=== PATIENT | male | born 1960 | race Caucasian/White ===

== ENCOUNTER 2016-10-31 07:30 | Inpatient (IN) | payer BC, OTHER ==
[~2016-10-31] VITALS: Ht 182.9 cm; Wt 91.6 kg
[2017-01-09] VITALS (14 sets, daily range): BP systolic 106–125; BP diastolic 62–85
[2017-01-09] MEDS ORDERED: Thrombin 5000 units TOPIC ONE (06:24)
[2017-01-09] MEDS ORDERED: Surgicel 4in x 8in TOPIC ONE (06:24)
[2017-01-09] MEDS ORDERED: Vancomycin 1gm inj IVPB ONE ×2 (06:25→10:54)
[2017-01-09] MEDS ORDERED: Bacitracin 50000 Units Vial ONE (06:25)
[2017-01-09] MEDS ORDERED: Bupivacaine w/Epi 0.5% 30ml Vial INJ ONE (06:25)
[2017-01-09] MEDS ORDERED: CARISOPRODOL350 MG ORAL (06:52)
[2017-01-09] MEDS ORDERED: SCOPOLAMINE1 EACH TD (06:52)
[2017-01-09] MEDS ORDERED: ceFAZolin 2gm/50ml Premix 50 ML IVPB ONE (07:00)
[2017-01-09] MEDS ORDERED: ceFAZolin sod 2 GM in D5W 110 ML IVP ONE (07:00)
--- NOTE | 2017-01-09 07:18 | Pre-Procedure Note/Attestation ---
Pre-Procedure Note/Attestation Complete Prior to Procedure Planned Procedure: not applicable Procedure Narrative: Cervical artificial disc replacement of C56 and anterior cervical discectomy and fusion of 67 Indications for Procedure Pre-Operative Diagnosis: 56 and 67 herniations Attestation I attest that I discussed the nature of the procedure; its benefits; risks and complications; and alternatives (and the risks and benefits of such alternatives ), prior to the procedure, with the patient (or the patient's legal telephone service representative). I attest that, if there was a reasonable possibility of needing a blood transfusion, the patient (or the patient's legal telephone service representative) was given the [facility] standardized written summary, pursuant to the [place] Blood Safety Act ([place] Health and Safety Code # 1645, as amended). I attest that I re-evaluated the patient just prior to the surgery and that there has been no change in the patient's H&P, except as documented below: GALO CASTRO Jan 09, 2017 07:18
--- NOTE | 2017-01-09 07:20 | Brief Operative Note ---
Immediate Post Operative Note Operative Note Chief Complaint: Neck pain and radiculopathy Pre-op Diagnosis: 56 and 67 herniations Procedure: Cervical artificial disc replacement of C56 and anterior cervical discectomy and fusion of 67 Surgeon: Karis Certified Low Vision Therapist: Keevn Anesthesia: general Specimen: none Complications: none Drains: none Implant(s) used?: Yes - Prodisc C size 5, nuvasive interlock C size 6 GALO CASTRO Jan 09, 2017 07:20
[2017-01-09] MEDS ORDERED: Phenylephrine 10mg/ml Vial ONE (07:30)
[2017-01-09] MEDS ORDERED: Sterile Water Irrig 1000ml IRRIG ONE (07:30)
[2017-01-09] MEDS ORDERED: Lidocaine 1% MPF 10mg/ml 5ml ONE (07:30)
[2017-01-09] MEDS ORDERED: Norco 7.5mg/325mg tab ORAL PRN (07:30)
[2017-01-09] MEDS ORDERED: Neostigmine 1mg/ml 10ml Inj ONE (07:30)
[2017-01-09] MEDS ORDERED: HYDROmorphone 1mg/ml Carpuject IVP PRN (07:30)
[2017-01-09] MEDS ORDERED: Morphine Sulfate 10mg/ml Inj ONE (07:30)
[2017-01-09] MEDS ORDERED: Chloraseptic Spray 20mL Bottle ORAL PRN (07:30)
[2017-01-09] MEDS ORDERED: LR 1000ml ONE (07:30)
[2017-01-09] MEDS ORDERED: fentaNYL 100 mcg/2 mL IV ONE (07:30)
[2017-01-09] MEDS ORDERED: Succinylcholine 20mg/ml 10ml vial ONE (07:30)
[2017-01-09] MEDS ORDERED: HYDROmorphone 1mg/ml Carpuject SUBQ PRN (07:30)
[2017-01-09] MEDS ORDERED: Propofol 1,000mg/ 100ml btl IV ONE (07:30)
[2017-01-09] MEDS ORDERED: Sodium Chloride 10ml vial INJ ONE ×2 (07:30)
[2017-01-09] MEDS ORDERED: Metoclopramide 10mg/2ml Inj IVP PRN (07:30)
[2017-01-09] MEDS ORDERED: Milk of Magnesia 30ml Ud ORAL PRN (07:30)
[2017-01-09] MEDS ORDERED: Naloxone 0.4mg/ml Inj IVP PRN (07:30)
[2017-01-09] MEDS ORDERED: Ketorolac 30mg Inj ONE (07:30)
[2017-01-09] MEDS ORDERED: Midazolam 2mg/2ml Inj ONE (07:30)
[2017-01-09] MEDS ORDERED: NS Irrig 1000ml ONE (07:30)
[2017-01-09] MEDS ORDERED: Norco 5mg/325mg tab ORAL PRN (07:30)
[2017-01-09] MEDS ORDERED: Glycopyrrolate 0.2mg/ml 1ml Vial ONE (07:30)
[2017-01-09] MEDS ORDERED: Zemuron 50mg/5ml Inj IV ONE (07:30)
[2017-01-09] MEDS ORDERED: LR 1000ml 1,000 ML IVLG SCH (08:52)
--- NOTE | 2017-01-09 08:52 | Anethesia Preoperative Eval ---
Anesthesia Pre-op PMH/ROS General Date of Evaluation: Jan 09, 2017 Time of Evaluation: 07:15 Anesthesiologist: Wlater ASA Score: ASA 2 Mallampati Score Class I : Soft palate, uvula, fauces, pillars visible Class II: Soft palate, uvula, fauces visible Class III: Soft palate, base of uvula visible Class IV: Only hard plate visible Mallampati Classification: Class II Surgeon: Karis Diagnosis: Cervical eadiculopathy Surgical Procedure: ACDF Anesthesia History: none Social History: smoking - h/o Family History: no anesthesia problems Allergies: Coded Allergies: PROPOXYPHENE (Verified Allergy, Unknown, 01/09/17) cannot remember reaction Past Medical History Cardiovascular: Reports: HTN - mild, Denies: CAD, VA, valve dz, arrhythmia, other Pulmonary: Denies: asthma, COPD, KENNEDY, other Gastrointestinal/Genitourinary: Reports: GERD - mild, Denies: CRI, ESRD, other Neurologic/Psychiatric: Reports: other - chronic pain, Denies: dementia, CVA, depression/anxiety, TIA Endocrine: Denies: DM, hypothyroidism, steroids, other HEENT: Denies: cataract (L), cataract (R), glaucoma, MECHOOPDA (L), MECHOOPDA (R), other Hematology/Immune: Denies: anemia, DVT, bleeding disorder, other Musculoskeletal/Integumentary: Denies: OA, RA, DJD, DDD, edema, other PMH Narrative: as above PSxH Narrative: Partial colon resection Anesthesia Pre-op Phys. Exam Physician Exam Last Vital Signs Date Time Temp Pulse Resp B/P (MAP) Pulse Ox O2 Delivery O2 Flow Rate FiO2 01/09/17 06:48 97.5 48 20 107/62 100 Room Air Constitutional: NAD Neurologic: CN 2-12 intact Cardiovascular: RRR, no M/R/G Respiratory: CTA Gastrointestinal: S/NT/ND Airway Exam Mallampati Score: Class II MO: full Neck: stiff ROM: limited Teeth: intact Dentures: no upper, no lower Anesthesia Pre-op A/P Labs see chart low BS level on preop bloodwork 54, recheck accucheck preop - 83 good to proceed Studies Pre-op Studies: EKG - NSR Risk Assessment & Plan Assessment: ASA 2 Plan: GA with ETT Neuromonitoring Status Change Before Surgery: No Pre-Antibiotics Drug: Ancef 2gr. Given Within 1 Hr of Incision: Yes Time Given: 08:12 PATSY CORDON M.D. Jan 09, 2017 08:52
[2017-01-09] MEDS ORDERED: DiphenhydrAMINE 50mg/ml Inj IVP PRN (09:00)
[2017-01-09] MEDS ORDERED: Meperidine 50mg/ml Inj(FOR RIGORS ONLY) IV PRN (09:00)
[2017-01-09] MEDS ORDERED: Midazolam 2mg/2ml Inj IVP PRN (09:00)
[2017-01-09] MEDS ORDERED: Ketorolac 30mg Inj IV PRN (09:00)
[2017-01-09] MEDS ORDERED: Hydromorphone 0.5mg/0.5ml inj IVP PRN (09:00)
[2017-01-09] MEDS ORDERED: Propofol 200mg/20ml IV ONE (10:41)
--- NOTE | 2017-01-09 13:03 | Immediate Post-Op Evaluation ---
Immediate Post-Op Evalulation Immediate Post-Op Evalulation Procedure: ACDF C5-C6 C6-C7 Date of Evaluation: Jan 09, 2017 Time of Evaluation: 11:32 IV Fluids: 1200 Blood Products: none Estimated Blood Loss: 100 Urinary Output: 600 Blood Pressure Systolic: 116 Blood Pressure Diastolic: 72 Pulse Rate: 74 Respiratory Rate: 22 O2 Sat by Pulse Oximetry: 99 Temperature (Fahrenheit): 98.1 Nausea: No Vomiting: No Complications none Patient Status: reacts, patent, extubated, none Hydration Status: adequate PATSY CORDON M.D. Jan 09, 2017 13:03
[2017-01-09] MEDS: NS w/KCl 20mEq 1,000 ML IV SCH ×2 (15:03→23:58)
[2017-01-09] MEDS: ceFAZolin sod 1 GM in D5W 55 ML IV SCH ×2 (15:49→23:57)
--- NOTE | 2017-01-09 16:28 | 48 Hour Post Anesthesia Eval ---
Post Anesthesia Evaluation Procedure: ACDF C5-C6 C6-C7 Date of Evaluation: Jan 09, 2017 Time of Evaluation: 16:27 Blood Pressure Systolic: 106 0: 68 Pulse Rate: 61 Respiratory Rate: 19 Temperature (Fahrenheit): 98.5 O2 Sat by Pulse Oximetry: 97 Airway: patent Nausea: No Vomiting: No Pain Intensity: 3 Hydration Status: adequate Cardiopulmonary Status: Stable Mental Status/LOC: patient returned to baseline Follow-up Care/Observations: 0 Post-Anesthesia Complications: 0 Follow-up care needed: N/A Josh Camarena MD Jan 09, 2017 16:28
--- NOTE | 2017-01-09 16:59 | Diagnostic Imaging Report ---
Indication: Neck Pain Findings: Fluoroscopic views of the cervical spine were obtained. Fluoroscopic images of the cervical spine obtained showing localization of C6-7. Subsequent fusion of C6-7 and disc replacement at C5-6 noted. Impression: Intraoperative imaging
[2017-01-09] MEDS: Docusate 100mg cap ORAL SCH (17:50)
[2017-01-09] MEDS: Dexamethasone 4mg/ml vial IVP SCH ×2 (17:51→23:57)
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
[2017-01-10] VITALS: BP 126/77
[2017-01-10 04:00] VITALS: BP 118/68
[2017-01-10] MEDS: Dexamethasone 4mg/ml vial IVP SCH (05:09)
[2017-01-10] MEDS: ceFAZolin sod 1 GM in D5W 55 ML IV SCH ×2 (05:09→06:54)
[2017-01-10 08:05] VITALS: BP 134/80
[2017-01-10] MEDS: Docusate 100mg cap ORAL SCH (08:21)
[2017-01-10] MEDS ORDERED: NORCO 10-325 T1 EACH ORAL (09:25)
[2017-01-10] MEDS ORDERED: Tubing IV Secondary IV ONE (09:39)
--- NOTE | 2017-01-10 18:45 | Discharge Summary ---
DATE OF ADMISSION: 01/09/2017 DATE OF DISCHARGE: 01/10/2017 PROCEDURE PERFORMED DURING ADMISSION: Artificial disk replacement at C5-6 and cervical fusion at C6-7. REASON FOR ADMISSION: Herniated nucleus pulposus, C5-6 and C6-7. HOSPITAL COURSE/TREATMENT RENDERED: DISCHARGE PHYSICAL EXAM: 1. Patient was ambulating with and without the assistance of Physical Therapy. 2. Prior to discharge home, incision was clean and dry with minimal swelling. 3. Follows commands. 4. Alert and oriented. 5. Michel discontinued, voiding. 6. Incentive spirometer at bedside. 7. IVF hep locked. MOTOR: Demonstrates expected postoperative bulk and tone. Moves biceps, triceps, and deltoid musculature on command. Moves hip flexors, quadriceps, tibialis anterior, EHL, gastrocsoleus musculature on command as well. TREATMENT RENDERED: 1. Daily nursing care. 2. Physical therapy. 3. Occupational therapy. 4. Intravenous medications 5. Oral medications. 6. Daily postoperative examinations by Spine Surgery team. CONDITION OF PATIENT ON DISCHARGE: The condition on discharge is stable for discharge to home. DISCHARGE INSTRUCTIONS: Our specific instructions relating to physical activity, medications diet and follow-up care are detailed in our standard operative folder and were given to this patient prior to surgery. We will however summarize these briefly as stated below. Regarding physical activity we would like the patient to limit their flexion, extension and rotation. We also require a limitation on their bending lifting and twisting. All medication has been called in prior to surgery to their pharmacy of choice. They can resume their regular diet once tolerated. We would like them to shower and limit soaking the wound in a tub/Jacuzzi/the ocean for a period of one month or until the incision is completely healed. We will have them follow up in our office in three weeks time for their regularly scheduled appointment. They understand to call our office tomorrow to schedule the time for their three week followup appointment. The patient will notify us should they experience any increase in the severity of pain, redness/swelling/ or drainage from their incision. Jose Dyson M.D. DR: Bianca JOB#: [id number] CC:
[2017-01-12] MEDS ORDERED: TransDerm Scop 1mg/72HR Patch TDERMAL SCH (09:00)
== END 2017-01-10 09:40 | disposition home or self-care (01) | DRG 518 ==
LOC: SDSOVERFLO 01-09 05:34 → EDBD 01-09 05:34 → 3E 01-09 13:55
PROC: 0RR30JZ Replacement of Cervical Vertebral Disc with Synthetic Substitute, Open Approach (ICD-10-PCS; principal; 2017-01-09 07:00)
DX: M50.122 Cervical disc disorder at C5-C6 level with radiculopathy (principal); M48.02 Spinal stenosis, cervical region; I10 Essential (primary) hypertension; Z85.038 Personal history of other malignant neoplasm of large intestine; Z72.0 Tobacco use
CPT/HCPCS: 36415; 72040; 76001; 82962; 86850; 86900; 86901; 87081; 94003; 94150; J2250; J2370; J2710